=== PATIENT | female | born 1965 | race Caucasian/White ===

== ENCOUNTER 2016-07-04 15:41 | Emergency (ER) | payer OTHER ==
[2016-07-04 16:01] VITALS: BP 110/75; PULSE 83; TEMP 98.5; BMI 27.8
--- NOTE | 2016-07-04 16:30 | PDOC ---
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 States has had some issues approximately 1 month with functional uterine bleeding, was seen by her [employer] doctor and prescribed medication. But states the past few days has had urgency and burning with her void. Denies fever, nausea vomiting, no changes with bowel, no vaginal drainage. Timing/Duration: reports: constant, getting worse Quality: reports: mild Past History - Travel Traveled outside of the country in the last 30 days: No Close contact w/someone who was outside of country & ill: No - Past Medical History Allergies/Adverse Reactions: Allergies Allergy/AdvReac Type Severity Reaction Status Date / Time No Known Allergies Allergy Verified 07/04/16 16:01 Home Medications: Ambulatory Orders NK [No Known Home Medication] 07/04/16 Anemia: Yes Other medical history: DENIES - Surgical History Abdominal Surgery: Yes (tummy tuck) - Immunization History Td Vaccination: Yes Immunization Up to Date: Yes - Psycho/Social/Smoking Cessation Hx Anxiety: No Suicidal Ideation: No Smoking Status: No Smoking History: Never smoked Years of Tobacco Use: 0 Number of Cigarettes Smoked Daily: 0 Cigars Per Day: 0 Information on smoking cessation initiated: No Hx Alcohol Use: No Drug/Substance Use Hx: No Substance Use Type: None Review of Systems - Review of Systems Able to Perform ROS?: Yes Is the patient limited Polish proficient: Yes Constitutional: Yes: Symptoms Reported, See HPI, Malaise. No: Chills, Fever HEENTM: No: Symptoms Reported Respiratory: No: Symptoms reported : Yes: Symptoms Reported, See HPI, Dysuria, Frequency. No: Flank Pain Integumentary: No: Symptoms Reported All Other Systems: Reviewed and Negative *Physical Exam - Vital Signs Last Vital Signs Temp Pulse Resp BP Pulse Ox 98.5 F 83 18 110/75 98 07/04/16 15:57 07/04/16 15:57 07/04/16 15:57 07/04/16 15:57 07/04/16 15:57 - Physical Exam General Appearance: Yes: Nourished, Appropriately Dressed, Apparent Distress HEENT: positive: NUBIA, Normal ENT Inspection, Normal Voice, TMs Normal, Pharynx Normal Neck: positive: Tender, Supple. negative: Lymphadenopathy (R), Lymphadenopathy (L) Respiratory/Chest: positive: Lungs Clear, Normal Breath Sounds Cardiovascular: positive: Regular Rate Gastrointestinal/Abdominal: positive: Normal Bowel Sounds, Tender (mild suprapubic pain ), Soft. negative: Organomegaly, Distended, Guarding, Rebound, Tenderness Musculoskeletal: positive: Normal Inspection. 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 Instructed patient would send urine for culture to rule out infection but there is no indication for antibiotics at this time. Will refer to [employer] doctor for further evaluation and possible studies. *DC/Admit/Observation/Transfer Diagnosis at time of Disposition: Abdominal discomfort - Discharge Dispostion Disposition: HOME Condition at time of disposition: Stable Admit: No - Referrals Referrals: Arya Hanson MD [Staff Physician] - - Patient Instructions Printed Discharge Instructions: DI for Dysmenorrhea Additional Instructions: Rest, drink lots of fluids: Teas, water, soups Jaylene anna, carbonated beverages for the bubbles May try peppermint teas Avoid heavy , spicy or fatty foods until symptoms have resolved Avoid contact with others until fevers and symptoms resolved Lots of handwashing and good hygiene Continue [id number] medications for symptomatic relief Tylenol or Motrin for fever and pain Followup with private physician in one to 2 days as needed Return to emergency department for worsened symptoms, fevers, dehydration - Post Discharge Activity Work/School Note: Back to Work
[2016-07-04 16:58] LABS: URINE APPEARANCE CLOUDY; URINE BILIRUBIN NEGATIVE (NEGATIVE); URINE BLOOD NEGATIVE (NEGATIVE); URINE COLOR YELLOW; URINE GLUCOSE (UA) NEGATIVE (NEGATIVE); URINE KETONE NEGATIVE (NEGATIVE); URINE LEUK ESTERASE NEGATIVE (NEGATIVE); URINE NITRITE NEGATIVE (NEGATIVE); URINE PROTEIN NEGATIVE (NEGATIVE); URINE UROBILINOGEN NEGATIVE E.U./dl (0.2-1.0)
== END 2016-07-04 17:33 | disposition home or self-care (01) ==
LOC: JERFT 15:41
DX: R10.2 Pelvic and perineal pain (principal)
CPT/HCPCS: 81003; 87086; 99281-25

== ENCOUNTER 2016-10-14 23:31 | Emergency (ER) | payer OTHER ==
[2016-10-14 23:53] VITALS: BP 138/70; PULSE 82; TEMP 97.6; BMI 25.6
[2016-10-14] MEDS ORDERED: SODIUM CHLORIDE 1,000 ML IV STA (23:54)
[2016-10-15 00:24] LABS: BASOPHIL 0.6 % (0-2.0); EOSINOPHIL 0.6 % (0-4.5); MCH 27.1 pg (25.7-33.7); MCHC 32.6 g/dl (32.0-36.0); NEUTROPHILS 61.7 % (42.8-82.8); PLATELET COUNT 116 K/MM3 (134-434); RDW 14.8 % (11.6-15.6); WHITE BLOOD COUNT 5.2 K/mm3 (4.0-10.0)
--- NOTE | 2016-10-15 00:58 | PDOC ---
History of Present Illness - General Chief Complaint: Pain Stated Complaint: PAIN Time Seen by Provider: 10/14/16 23:39 History Source: Patient, Family, Tester Armature Or Fields Used Exam Limitations: Language Barrier - History of Present Illness Initial Comments: 10/15/16 00:51 50yo Female patient with no significant past medical history presents to ED c/o 2 day history of Headache, right hand numbness and right mancia numbness. Patient reports she wanted to come in to get checked out. LNMP: September 14. Denies n/v/d, fever, CP, Abd pain, diff breathing, rash, congestion, cough, or any other complaints at this time. Timing/Duration: other (2 days) Severity: mild Modifying Factors: worse with: cold therapy, eating, immobilization, medication , movement, rest, other Associated Symptoms: denies: denies symptoms, chest pain, cough, diaphoresis, fever/chills, headaches, loss of appetite, malaise, nausea/vomiting, rash, seizure, shortness of breath, syncope, weakness, other Aspirin Received prior to arrival: No: no aspirin today, unknown, 81 mg x 1, 81 mg x 2, 81 mg x 3, 81 mg x 4, 325 mg x 1, provided at home, provided by EMS, provided by ED Asa Contraindications(Core Measure): No: Allergy, Other, Active Blding w/i 24 hrs., Plavix, Receiving Warfarin Beta Jack Contraindications(Core Measure): No: Not Prescribed, Allergy, Bradycardia (HR <60bpm), Advanced Heart Block, Pacemaker, Other NIH Stroke Scale - Last Known Well Date/Time & Onset Date Last Known Well: 10/13/16 Time Last Known Well: 08:00 - Initial Evaluation Level of consciousness: Alert Ask patient the month and their age: Answers both correctly Ask patient to open & close eyes; make fist and let go: Obeys both correctly Best gaze (horizontal eye movement): Normal Visual field testing: No visual field loss Facial paresis (Show teeth/raise eyebrows/close eyes tight): Normal symmetrical movement Motor Function: Left Arm: Normal Motor Function: Right Arm: Normal (extends arm 90 (or 45) degrees for 10 seconds without drift Motor Function: Left Leg: Normal (extends leg 30 degrees for 5 seconds without drift) Motor Function: Right Leg: Normal (extends leg 30 degrees for 5 seconds without drift) Limb Ataxia: No ataxia Sensory(Use pinprick test arms,legs,trunk,face/side to side): Normal Best language (Describe picture, name items, read sentences): No Aphasia Dysarthria (read several words): Normal articulation Extinction and Inattention: No abnormality - Total Score NIH Stroke Scale Score: 0 Past History - Travel Traveled outside of the country in the last 30 days: No Close contact w/someone who was outside of country & ill: No - Past Medical History Allergies/Adverse Reactions: Allergies Allergy/AdvReac Type Severity Reaction Status Date / Time No Known Allergies Allergy Verified 10/14/16 23:50 Home Medications: Ambulatory Orders NK [No Known Home Medication] 07/04/16 Anemia: Yes - Surgical History Abdominal Surgery: Yes (tummy tuck) - Immunization History Td Vaccination: Yes Immunization Up to Date: Yes - Psycho/Social/Smoking Cessation Hx Anxiety: No Suicidal Ideation: No Smoking Status: No Smoking History: Former smoker Years of Tobacco Use: 0 Have you smoked in the past 12 months: No Number of Cigarettes Smoked Daily: 0 Cigars Per Day: 0 Information on smoking cessation initiated: No Hx Alcohol Use: No Drug/Substance Use Hx: No Substance Use Type: None Review of Systems - Review of Systems Able to Perform ROS?: Yes Is the patient limited Bulgarian proficient: No Constitutional: No: Chills, Fever, Weakness HEENTM: No: Eye Pain, Blurred Vision, Throat Swelling, Mouth Pain, Difficulty Swallowing, Mouth Swelling Respiratory: No: Cough, Shortness of Breath, Stridor, Wheezing Cardiac (ROS): No: Chest Pain, Lightheadedness, Palpitations, Syncope, Chest Tightness ABD/GI: No: Diarrhea, Nausea, Poor Appetite, Poor Fluid Intake, Vomiting, Abdominal cramping : No: Burning, Dysuria, Flank Pain, Hematuria, Pain Musculoskeletal: No: Back Pain, Muscle Weakness, Neck Pain Integumentary: No: Bruising, Dryness, Erythema, Lesions, Rash, Sweating Neurological: Yes: Headache, Numbness. No: Seizure, Tingling, Tremors, Weakness , Ataxia, Dizziness All Other Systems: Reviewed and Negative *Physical Exam - Vital Signs Last Vital Signs Temp Pulse Resp BP Pulse Ox 97.6 F 82 20 138/70 99 10/14/16 23:52 10/14/16 23:52 10/14/16 23:52 10/14/16 23:52 10/14/16 23:52 - Physical Exam General Appearance: Yes: Nourished, Appropriately Dressed. No: Apparent Distress, Mild Distress, Moderate Distress, Severe Distress HEENT: positive: EOMI, NUBIA, Normal ENT Inspection, Normal Voice, Symmetrical, TMs Normal, Pharynx Normal. negative: Tonsillar Exudate, Tonsillar Erythema, Nasal Congestion, Rhinorrhea, TM Bulging, TM Dull, TM Erythema Neck: positive: Trachea midline, Normal Thyroid, Supple. negative: Lymphadenopathy (R), Lymphadenopathy (L), Rigidity, Tender lateral, Tender midline Respiratory/Chest: positive: Lungs Clear, Normal Breath Sounds. negative: Chest Tender, Respiratory Distress, Accessory Muscle Use, Labored Respiration, Rapid RR, Paradoxal Breathing, Crackles, Rales, Rhonchi, Stridor, Wheezing Cardiovascular: positive: Regular Rhythm, Regular Rate. negative: Edema, JVD, Tachycardia Gastrointestinal/Abdominal: positive: Normal Bowel Sounds, Soft. negative: Tender, Flat, Distended, Guarding, Rebound, Tenderness Musculoskeletal: positive: Normal Inspection. negative: CVA Tenderness, Decreased Range of Motion, Vertebral Tenderness Extremity: positive: Normal Capillary Refill, Normal Inspection, Normal Range of Motion. negative: Pedal Edema, Swelling, Calf Tenderness, Erythema, Inflammation Integumentary: positive: Normal Color, Dry, Warm. 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 NML intact, Fully Oriented, Alert, Normal Mood/ Affect, Normal Response, Motor Strength 5/5 ED Treatment Course - LABORATORY CBC & Chemistry Diagram: 10/15/16 00:10 10/15/16 00:10 - ADDITIONAL ORDERS Additional order review: 10/15/16 00:10 RBC 4.03 MCV 83.0 MCHC 32.6 RDW 14.8 MPV 11.0 Neutrophils % 61.7 Lymphocytes % 29.6 Monocytes % 7.5 Eosinophils % 0.6 Basophils % 0.6 - RADIOLOGY Radiology Studies Ordered: Category Date Time Status HEAD CT WITHOUT CONTRAST [CT] Stat CT Scan 10/15/16 00:00 Ordered *DC/Admit/Observation/Transfer Diagnosis at time of Disposition: Headache Qualifiers: Headache type: unspecified Headache chronicity pattern: acute headache Intractability: not intractable Qualified Code(s): R51 - Headache - Discharge Dispostion Disposition: HOME Condition at time of disposition: Improved Admit: No - Patient Instructions Printed Discharge Instructions: DI for Migraine Additional Instructions: FOLLOW UP WITH YOUR PRIMARY CARE PROVIDER THIS WEEK. CALL TO SCHEDULE APPOINTMENT. RETURN IF SYMPTOMS WORSEN OR ANY CONCERNS FOR FURTHER EVALUATION. Print Language: VATICAN CITIZEN
[2016-10-15 01:05] LABS: ALBUMIN 3.8 g/dl (3.4-5.0); ALK PHOS 81 U/L (45-117); ANION GAP 7 (8-16); BILIRUBIN,TOTAL 0.6 mg/dL (0.2-1.0); CALCIUM 8.7 mg/dL (8.5-10.1); CO2 25 mmol/L (21-32); CREATININE 0.6 mg/dL (0.55-1.02); GLUCOSE,RANDOM 93 mg/dL (74-106); SGOT/AST 14 U/L (15-37); SGPT/ALT 23 U/L (12-78); TOT PROT 7.5 g/dl (6.4-8.2)
[2016-10-15 01:49] LABS: URINE APPEARANCE CLEAR; URINE BILIRUBIN NEGATIVE (NEGATIVE); URINE BLOOD NEGATIVE (NEGATIVE); URINE COLOR STRAW; URINE GLUCOSE (UA) NEGATIVE (NEGATIVE); URINE KETONE NEGATIVE (NEGATIVE); URINE LEUK ESTERASE TRACE (NEGATIVE); URINE NITRITE NEGATIVE (NEGATIVE); URINE PROTEIN NEGATIVE (NEGATIVE); URINE UROBILINOGEN NEGATIVE mg/dL (0.2-1.0)
[2016-10-15 01:58] LABS: URINE RBC <1 /hpf (0-3); URINE WBC 5 /hpf (3-5)
--- NOTE | 2016-10-15 09:12 | EKG ---
Test Reason : Blood Pressure : / mmHG Vent. Rate : 083 BPM Atrial Rate : 083 BPM P-R Int : 194 ms QRS Dur : 078 ms QT Int : 370 ms P-R-T Axes : 050 037 050 degrees QTc Int : 434 ms NORMAL SINUS RHYTHM POSSIBLE LEFT ATRIAL ENLARGEMENT BORDERLINE ECG WHEN COMPARED WITH ECG OF 30-DEC-2014 02:21, NO SIGNIFICANT CHANGE WAS FOUND Confirmed by ADRIENNE LY MD ([id number]) on 10/15/2016 9:11:42 AM Referred By: Confirmed By:ADRIENNE LY MD
== END 2016-10-15 03:00 | disposition home or self-care (01) ==
LOC: JER 23:31
PROC: 3E0337Z Introduction of Electrolytic and Water Balance Substance into Peripheral Vein, Percutaneous Approach (ICD-10-PCS; principal; 2016-10-14)
DX: R51 Headache (principal)
CPT/HCPCS: 36415; 70450-TC; 80053; 81003; 81015; 84703; 85025; 93005; 93010; 96360; 99282-25

== ENCOUNTER 2017-05-12 07:22 | Emergency (ER) | payer OTHER ==
[2017-05-12 07:50] VITALS: TEMP 98.2; BMI 26.0
[2017-05-12] MEDS ORDERED: SODIUM CHLORIDE 1,000 ML IV STA (08:23)
[2017-05-12] MEDS ORDERED: ONDANSETRON *ODT* 4 MG TABLET SL ONE (08:28)
--- NOTE | 2017-05-12 08:28 | PDOC ---
History of Present Illness - General Chief Complaint: Pain, Acute Stated Complaint: VOMITING Time Seen by Provider: 05/12/17 08:09 History Source: Patient, Spouse - History of Present Illness Initial Comments: 05/12/17 08:25 51F with pmh of anemia presents with nausea, vomiting and diffuse abdominal pain for the past 10 hours. Last food eaten was plantains around 3pm. Patient doesn't take any medication. Denies diarrhea or blood in vomitus. No one else sick at home, no recent travel. Past History - Past Medical History Allergies/Adverse Reactions: Allergies Allergy/AdvReac Type Severity Reaction Status Date / Time No Known Allergies Allergy Verified 05/12/17 07:40 Home Medications: Ambulatory Orders Nabumetone 750 mg PO DAILY 05/12/17 Ondansetron [Zofran *Odt*] 8 mg SL BID #20 od.tablet 05/12/17 Zolpidem Tartrate [Ambien] 10 mg PO DAILY 05/12/17 Anemia: Yes COPD: No - Surgical History Abdominal Surgery: Yes (sky fuentes) - Immunization History Td Vaccination: Yes Immunization Up to Date: Yes - Suicide/Smoking/Psychosocial Hx Smoking Status: No Smoking History: Former smoker Years of Tobacco Use: 0 Have you smoked in the past 12 months: No Number of Cigarettes Smoked Daily: 0 Cigars Per Day: 0 Information on smoking cessation initiated: No Hx Alcohol Use: No Drug/Substance Use Hx: No Substance Use Type: None Review of Systems - Review of Systems Able to Perform ROS?: Yes Is the patient limited Jordanian proficient: Yes Constitutional: Yes: Loss of Appetite, Weakness. No: Diaphoresis, Fever HEENTM: No: Symptoms Reported Respiratory: No: Symptoms reported Cardiac (ROS): No: Symptoms Reported ABD/GI: Yes: Nausea, Poor Appetite, Poor Fluid Intake, Vomiting. No: Abdominal Distended, Constipated, Diarrhea, Rectal Bleeding, Indigestion : No: Symptoms Reported Musculoskeletal: No: Symptoms Reported Integumentary: No: Symptoms Reported All Other Systems: Reviewed and Negative *Physical Exam - Vital Signs Last Vital Signs Temp Pulse Resp BP Pulse Ox 98.2 F 95 H 19 118/72 99 05/12/17 07:40 05/12/17 07:40 05/12/17 07:40 05/12/17 07:40 05/12/17 07:40 - Physical Exam General Appearance: Yes: Nourished, Appropriately Dressed. No: Apparent Distress HEENT: positive: EOMI, NUBIA, Normal ENT Inspection ED Treatment Course - LABORATORY CBC & Chemistry Diagram: 05/12/17 08:54 05/12/17 08:54 Medical Decision Making - Medical Decision Making 05/12/17 11:22 US: No evidence of cholelithiasis. There is no sonographic evidence of acute pathology. No definite biliary tract dilatation is seen. Several hepatic cysts are noted the most prominent measuring 3 cm in diameter. This latter cyst demonstrates a mildly thickened internal septation. Correlation with 3 month follow-up sonography is suggested to document stability, and lack of developing pathology. 05/12/17 12:36 Labs wnl, 05/12/17 12:[address] findings of acute pathology are identified. Numerous hepatic cysts are noted. Mildly thickened internal septations noted on recently performed sonography are difficult to appreciate on CT. Correlation with 3-4 month follow up sonography is suggested. Patient feeling better after ns and zofran. preg neg, Will po challenge, zofran prescription and dc with referal *DC/Admit/Observation/Transfer Diagnosis at time of Disposition: Vomiting - Discharge Dispostion Disposition: HOME Condition at time of disposition: Improved Admit: No - Prescriptions Prescriptions: Ondansetron [Zofran *Odt*] 8 mg SL BID #20 od.tablet - Referrals Referrals: Tray Banks MD [Staff Physician] - - Patient Instructions Printed Discharge Instructions: DI for Viral Gastroenteritis -- Adult Additional Instructions: Follow up with Dr. Banks, [employer] for Ct Scan Results within 2-3 days Come back to the ER for any new, worsening or persistent symptoms. Print Language: ITALIAN - Post Discharge Activity
[2017-05-12] MEDS ORDERED: morphine CARPU-JECT 4 MG/1 ML DISP.SYRIN IVPUSH ONE (08:30)
[2017-05-12] MEDS ORDERED: ACETAMINOPHEN 1000 MG/100 ML VIAL (NON FORMULARY) IVPB ONE (08:32)
[2017-05-12 09:17] LABS: BASO % 0.1 % (0-2.0); EOS % 0.1 % (0-4.5); HEMATOCRIT 38.1 % (32.4-45.2); HEMOGLOBIN 12.6 GM/dL (10.7-15.3); LYMPH % 4.7 % (8-40); MCH 28.3 pg (25.7-33.7); MEAN CELL VOLUME 85.7 fl (80-96); MEAN PLT VOLUME 11.5 fl (7.5-11.1); MONO % 2.2 % (3.8-10.2); NEUT % 92.9 % (42.8-82.8); PLATELET COUNT 139 K/MM3 (134-434); RBC 4.44 M/mm3 (3.60-5.2); RDW 15.2 % (11.6-15.6); WHITE BLOOD COUNT 10.8 K/mm3 (4.0-10.0)
[2017-05-12] MEDS ORDERED: ACETAMINOPHEN INJECTION 100 ML IVPB ONE (09:23)
[2017-05-12] MEDS ORDERED: FAMOTIDINE 20 MG/50 ML IVPB 20 MG/50 ML MG IVPB ONE (09:23)
[2017-05-12] MEDS ORDERED: MORPHINE SULFATE 10 MG/1 ML *VIAL ONE (09:23)
[2017-05-12] MEDS ORDERED: ONDANSETRON *ODT* 4 MG TABLET ONE (09:23)
[2017-05-12] MEDS ORDERED: METOCLOPRAMIDE HCL INJECTION 10 MG/2 ML VIAL ONE (09:30)
[2017-05-12] MEDS ORDERED: METOCLOPRAMIDE HCL INJECTION 10 MG/2 ML VIAL IVPUSH ONE (09:30)
--- NOTE | 2017-05-12 09:48 | PDOC ---
Attending Attestation - Resident Resident Name: Wilber Diallo - ED Attending Attestation I have performed the following: I have examined & evaluated the patient, The case was reviewed & discussed with the resident, I agree w/resident's findings & plan, Exceptions are as noted - HPI HPI: 05/12/17 09:47 51 year old F c/ pmh abdominoplasty p/w nausea and vomiting since yesterday. Ate some food yesterday and since then has been vomiting several times. Denies fevers, diarrhea. States has diffuse upper abdominal pain. Denies dysuria. Pt unable to tolerate PO 2/2 nausea. - Physicial Exam PE: 05/12/17 10:15 GENERAL: Awake, alert, and fully oriented. Uncomfortable appearing. HEAD: No signs of trauma EYES: PERRLA, EOMI, sclera anicteric, conjunctiva clear ENT: Auricles normal inspection, hearing grossly normal, nares patent, NECK: Normal ROM, supple ABDOMEN: TTP RUQ, epigastric, LUQ. Soft. No guarding, no rebound. No masses EXTREMITIES: Normal range of motion, no edema. No clubbing or cyanosis. No cords, erythema, or tenderness NEUROLOGICAL: Cranial nerves II through XII grossly intact. Normal speech SKIN: Warm, Dry, normal turgor, no rashes or lesions noted. - Medical Decision Making 05/12/17 10:17 Vital Signs Temp Pulse Resp BP Pulse Ox 98.2 F 95 H 19 118/72 99 05/12/17 07:40 05/12/17 07:40 05/12/17 07:40 05/12/17 07:40 05/12/17 07:40 51 year old female with past medical history of vomiting and abdominal pain. May possibly be food poisoning, but differential includes gastritis, gastroenteritis, acute cholecystitis, pancreatitis, bowel obstruction. Lab, chest xray, ultrasound, CT abdomen and pelvis. 05/12/17 12:25 CBC, BMP 05/12/17 08:54 05/12/17 08:54 CMP Sodium 140 mmol/L (136-145) 05/12/17 08:54 Potassium 4.8 mmol/L (3.5-5.1) 05/12/17 08:54 Chloride 107 mmol/L (98-107) 05/12/17 08:54 Carbon Dioxide 26 mmol/L (21-32) 05/12/17 08:54 Anion Gap 7 (8-16) L 05/12/17 08:54 BUN 17 mg/dL (7-18) 05/12/17 08:54 Creatinine 0.7 mg/dL (0.55-1.02) 05/12/17 08:54 Creat Clearance w eGFR > 60 (>60) 05/12/17 08:54 Random Glucose 102 mg/dL (74-106) 05/12/17 08:54 Lactic Acid 1.7 mmol/L (0.0-2.0) 05/12/17 09:42 Calcium 8.3 mg/dL (8.5-10.1) L 05/12/17 08:54 Total Bilirubin 0.8 mg/dL (0.2-1.0) D 05/12/17 08:54 AST 41 U/L (15-37) H 05/12/17 08:54 ALT 36 U/L (12-78) 05/12/17 08:54 Alkaline Phosphatase 100 U/L (45-117) 05/12/17 08:54 Creatine Kinase 127 IU/L (26-192) 05/12/17 08:54 Troponin I < 0.02 ng/ml (0.00-0.05) 05/12/17 08:54 Total Protein 8.1 g/dl (6.4-8.2) 05/12/17 08:54 Albumin 4.1 g/dl (3.4-5.0) 05/12/17 08:54 Beta HCG, Quant < 1.0 mIU/ml 05/12/17 08:54 Urine Test Results Urine Color Ltyellow 05/12/17 10:38 Urine Appearance Clear 05/12/17 10:38 Urine pH 9.0 (5.0-8.0) H D 05/12/17 10:38 Ur Specific [place] 1.020 (1.001-1.035) 05/12/17 10:38 Urine Protein Negative (NEGATIVE) 05/12/17 10:38 Urine Glucose (UA) Negative (NEGATIVE) 05/12/17 10:38 Urine Ketones Trace (NEGATIVE) H 05/12/17 10:38 Urine Blood Negative (NEGATIVE) 05/12/17 10:38 Urine Nitrite Negative (NEGATIVE) 05/12/17 10:38 Urine Bilirubin Negative (NEGATIVE) 05/12/17 10:38 Ur Leukocyte Esterase Negative (NEGATIVE) 05/12/17 10:38 CT abdomen and pelvis and ultrasound demonstrates hepatic cysts. I had given the results to the patient including a copy of the workup. I instructed the patient that she will need a follow up with her doctor for a repeat ultrasound for her liver cysts. The patient does feel better but is requesting some more medications for nausea and fluids. Once the patient feels better, the patient can be discharged. Heart Score/ECG Review #1 ECG reviewed & interpreted by me at: 10:35 05/12/17 10:37 NSR 76, T wave flat III, no std/néstor, RSR' V2, QTC 434 msec
[2017-05-12 09:52] LABS: ALBUMIN 4.1 g/dl (3.4-5.0); ANION GAP 7 (8-16); BILIRUBIN,TOTAL 0.8 mg/dL (0.2-1.0); BLOOD UREA NITROGEN 17 mg/dL (7-18); CALCIUM 8.3 mg/dL (8.5-10.1); CHLORIDE 107 mmol/L (98-107); CO2 26 mmol/L (21-32); CREATININE 0.7 mg/dL (0.55-1.02); GLUCOSE,RANDOM 102 mg/dL (74-106); SGPT/ALT 36 U/L (12-78); SODIUM 140 mmol/L (136-145); TOT PROT 8.1 g/dl (6.4-8.2)
[2017-05-12 09:54] LABS: ALK PHOS 100 U/L (45-117)
[2017-05-12 09:57] LABS: POTASSIUM 4.8 mmol/L (3.5-5.1); SGOT/AST 41 U/L (15-37)
[2017-05-12] MEDS ORDERED: FAMOTIDINE IV 20 MG/12 ML VIAL IVPUSH SCH (10:00)
[2017-05-12 11:05] LABS: URINE APPEARANCE CLEAR; URINE BILIRUBIN NEGATIVE (NEGATIVE); URINE BLOOD NEGATIVE (NEGATIVE); URINE COLOR LTYELLOW; URINE GLUCOSE (UA) NEGATIVE (NEGATIVE); URINE KETONE TRACE (NEGATIVE); URINE LEUK ESTERASE NEGATIVE (NEGATIVE); URINE NITRITE NEGATIVE (NEGATIVE); URINE PROTEIN NEGATIVE (NEGATIVE); URINE UROBILINOGEN NEGATIVE mg/dL (0.2-1.0)
[2017-05-12 11:06] LABS: HCG,QUALITATIVE URINE NEGATIVE
[2017-05-12] MEDS ORDERED: ONDANSETRON 4 MG/2 ML VIAL IVPB ONE (12:29)
[2017-05-12 13:15] VITALS: BP 117/66; PULSE 78
--- NOTE | 2017-05-13 23:28 | EKG ---
Test Reason : Blood Pressure : / mmHG Vent. Rate : 076 BPM Atrial Rate : 076 BPM P-R Int : 188 ms QRS Dur : 078 ms QT Int : 386 ms P-R-T Axes : 063 055 046 degrees QTc Int : 434 ms NORMAL SINUS RHYTHM RSR' OR QR PATTERN IN V1 SUGGESTS RIGHT VENTRICULAR CONDUCTION DELAY WHEN COMPARED WITH ECG OF 15-OCT-2016 00:17, T WAVE VARIATION Confirmed by RAAD CANSECO MD ([id number]) on 05/13/2017 11:27:56 PM Referred By: Confirmed By:RAAD CANSECO MD
== END 2017-05-12 13:14 | disposition home or self-care (01) ==
LOC: JER 07:22
PROC: 3E033NZ Introduction of Analgesics, Hypnotics, Sedatives into Peripheral Vein, Percutaneous Approach (ICD-10-PCS; principal; 2017-05-12)
PROC: 3E033GC Introduction of Other Therapeutic Substance into Peripheral Vein, Percutaneous Approach (ICD-10-PCS; 2017-05-12)
PROC: 3E033GC Introduction of Other Therapeutic Substance into Peripheral Vein, Percutaneous Approach (ICD-10-PCS; 2017-05-12)
PROC: 3E033GC Introduction of Other Therapeutic Substance into Peripheral Vein, Percutaneous Approach (ICD-10-PCS; 2017-05-12)
DX: A08.4 Viral intestinal infection, unspecified (principal); B97.89 Other viral agents as the cause of diseases classified elsewhere
CPT/HCPCS: 36415; 74177-TC; 76705-TC; 80053; 81003; 82550; 83605; 84484; 84702; 84703; 85025; 93005; 93010; 96374; 96375; 99284-25

== ENCOUNTER 2017-06-19 07:33 | Emergency (ER) | payer OTHER ==
[2017-06-19 07:40] VITALS: TEMP 97.7; BMI 25.1
--- NOTE | 2017-06-19 07:54 | PDOC ---
History of Present Illness - General History Source: Patient Exam Limitations: No Limitations - History of Present Illness Initial Comments: 06/19/17 08:59 The patient is a 51 year old female with a significant PMH of anemia who presents to the emergency department with 3 days of dizziness and nausea and 1 day of diarrhea. The patient describes her dizziness as if the room is spinning around her with associated nausea, which is intermittent throughout the day and lasts for a few hours each time. She notes her dizziness is worse when she moves her head side to side. The patient describes her diarrhea as liquid stool with no associated hematochezia. The patient endorses some chills but denies fever. The patient denies vomiting. She denies any sick contacts or recent travel. She denies any history of vertigo. The patient denies chest pain, shortness of breath, and headache. Denies dysuria, frequency, urgency, and hematuria. LMP: 06/05/2017 Allergies: Morphine Past surgical history: Tummy tuck. Social history: No reported cigarette, alcohol, or drug use. PCP: Dr. Sergio Bryson <Ángel Isaac - Last Filed: 06/19/17 10:54> <Sukumar Sandoval - Last Filed: 06/19/17 11:34> - General Chief Complaint: Vomiting/Diarrhea Stated Complaint: VOMITING Time Seen by Provider: 06/19/17 07:54 Past History <Ángel Isaac - Last Filed: 06/19/17 10:54> - Past Medical History Anemia: Yes COPD: No - Surgical History Abdominal Surgery: Yes (tummy tuck) - Immunization History Td Vaccination: Yes Immunization Up to Date: Yes - Suicide/Smoking/Psychosocial Hx Smoking Status: No Smoking History: Never smoked Years of Tobacco Use: 0 Have you smoked in the past 12 months: No Number of Cigarettes Smoked Daily: 0 Cigars Per Day: 0 Information on smoking cessation initiated: No Hx Alcohol Use: No Drug/Substance Use Hx: No Substance Use Type: None <Sukumar Sandoval - Last Filed: 06/19/17 11:34> - Past Medical History Allergies/Adverse Reactions: Allergies Allergy/AdvReac Type Severity Reaction Status Date / Time morphine Allergy Intermediate Verified 06/19/17 07:41 Home Medications: Ambulatory Orders Nabumetone 750 mg PO DAILY 05/12/17 Ondansetron [Zofran *Odt*] 8 mg SL BID #20 od.tablet 05/12/17 Zolpidem Tartrate [Ambien] 10 mg PO DAILY 05/12/17 Review of Systems - Review of Systems Able to Perform ROS?: Yes Comments:: 06/19/17 09:02 GENERAL/CONSTITUTIONAL: (+) Chills. No fever. No weakness. HEAD, EYES, EARS, NOSE AND THROAT: No change in vision. No ear pain or discharge. No sore throat. CARDIOVASCULAR: No chest pain or shortness of breath. RESPIRATORY: No cough, wheezing, or hemoptysis. GASTROINTESTINAL: (+) Nausea. (+) Diarrhea. No vomiting or constipation. GENITOURINARY: No dysuria, frequency, or change in urination. MUSCULOSKELETAL: No joint or muscle swelling or pain. No neck or back pain. SKIN: No rash NEUROLOGIC: (+) Dizziness. No headache or loss of consciousness, or change in strength. ENDOCRINE: No increased thirst. No abnormal weight change. HEMATOLOGIC/LYMPHATIC: No anemia, easy bleeding, or history of blood clots. ALLERGIC/IMMUNOLOGIC: No hives or skin allergy. <Ángel Isaac - Last Filed: 06/19/17 10:54> *Physical Exam - Vital Signs Last Vital Signs Temp Pulse Resp BP Pulse Ox 97.7 F 74 18 124/54 99 06/19/17 07:35 06/19/17 07:35 06/19/17 07:35 06/19/17 07:35 06/19/17 07:35 - Physical Exam Comments: 06/19/17 10:54 GENERAL: Awake, alert, and fully oriented, in no acute distress HEAD: No signs of trauma EYES: PERRLA, EOMI, sclera anicteric, conjunctiva clear ENT: Auricles normal inspection, hearing grossly normal, nares patent, oropharynx clear without exudates. Moist mucosa NECK: Normal ROM, supple, no lymphadenopathy, JVD, or masses LUNGS: Breath sounds equal, clear to auscultation bilaterally. No wheezes, and no crackles HEART: Regular rate and rhythm, normal S1 and S2, no murmurs, rubs or gallops ABDOMEN: (+) Mild epigastric discomfort. Soft, nontender normoactive bowel sounds. No guarding, no rebound. No masses EXTREMITIES: Normal range of motion, no edema. No clubbing or cyanosis. No cords, erythema, or tenderness NEUROLOGICAL: Cranial nerves II through XII grossly intact. Normal speech, normal gait SKIN: Warm, Dry, normal turgor, no rashes or lesions noted. <Ángel Isaac - Last Filed: 06/19/17 10:54> - Vital Signs Last Vital Signs Temp Pulse Resp BP Pulse Ox 97.7 F 74 18 124/54 99 06/19/17 07:35 06/19/17 07:35 06/19/17 07:35 06/19/17 07:35 06/19/17 07:35 <Sukumar Sandoval - Last Filed: 06/19/17 11:34> ED Treatment Course - LABORATORY CBC & Chemistry Diagram: 06/19/17 08:15 06/19/17 08:15 <Ángel Isaac - Last Filed: 06/19/17 10:54> - LABORATORY CBC & Chemistry Diagram: 06/19/17 08:15 06/19/17 10:06 <Sukumar Sandoval - Last Filed: 06/19/17 11:34> Medical Decision Making - Medical Decision Making 06/19/17 11:12 Patient is well-appearing 51-year-old female who presents to the ER with several bouts of loose watery stools and signs and symptoms of peripheral vertigo. Serial abdominal exams reveal minimal epigastric discomfort only without guarding or rebound. Will administer IV fluids, H2 blockers and Zofran as well as meclizine. Will reassess. Likely discharge. 06/19/17 11:32 Patient reassessed. Patient is resting comfortably, symptom free, tolerates by mouth. CBC/CMP/UA within normal limit. I suspect gastroenteritis with concomitant vertigo. I do not suspect central cause of the vertigo. BPV is likely. Will discharge with meclizine. <Sukumar Sandoval - Last Filed: 06/19/17 11:34> *DC/Admit/Observation/Transfer - Attestations Scribe Attestion: 06/19/17 09:02 Documentation prepared by Ángel Isaac, acting as medical billing service for Sukumar Sandoval MD. <Ángel Isaac - Last Filed: 06/19/17 10:54> - Attestations Physician Attestion: 06/19/17 11:11 The documentation was prepared by the scribe under my direct supervision. I have reviewed the documentation which correctly represents the findings, medical decision-making and critical action taken by me. <Sukumar Sandoval - Last Filed: 06/19/17 11:34> Diagnosis at time of Disposition: Vertigo Abdominal pain Qualifiers: Abdominal location: epigastric Qualified Code(s): R10.13 - Epigastric pain Diarrhea Qualifiers: Diarrhea type: unspecified type Qualified Code(s): R19.7 - Diarrhea, unspecified - Discharge Dispostion Disposition: HOME Condition at time of disposition: Stable - Referrals Referrals: ON STAFF,NOT [Primary Care Provider] - pmd, one week [Other] - Patient Instructions Printed Discharge Instructions: DI for Abdominal Pain-Adult, DI for Diarrhea and Traveler's Diarrhea -- Adult, DI for Vertigo Print Language: MALTESE
[2017-06-19] MEDS ORDERED: MECLIZINE HCL 25 MG TABLET (FP) PO ONE (08:32)
[2017-06-19] MEDS ORDERED: SODIUM CHLORIDE 1,000 ML IV STA (08:32)
[2017-06-19] MEDS ORDERED: ONDANSETRON 4 MG/2 ML VIAL IVPUSH ONE (08:32)
[2017-06-19] MEDS ORDERED: MECLIZINE HCL 25 MG TABLET (FP) ONE (08:51)
[2017-06-19] MEDS ORDERED: ONDANSETRON 4 MG/2 ML VIAL ONE (08:51)
[2017-06-19 09:03] LABS: BASO % 0.7 % (0-2.0); EOS % 0.6 % (0-4.5); HEMATOCRIT 33.8 % (32.4-45.2); HEMOGLOBIN 11.4 GM/dL (10.7-15.3); LYMPH % 20.3 % (8-40); MCH 28.9 pg (25.7-33.7); MCHC 33.8 g/dl (32.0-36.0); MEAN CELL VOLUME 85.6 fl (80-96); MEAN PLT VOLUME 11.5 fl (7.5-11.1); MONO % 6.3 % (3.8-10.2); NEUT % 72.1 % (42.8-82.8); PLATELET COUNT 162 K/MM3 (134-434); RBC 3.94 M/mm3 (3.60-5.2); RDW 14.1 % (11.6-15.6); WHITE BLOOD COUNT 6.6 K/mm3 (4.0-10.0)
[2017-06-19 10:50] LABS: ALBUMIN 3.5 g/dl (3.4-5.0); ALK PHOS 99 U/L (45-117); ANION GAP 5 (8-16); BILIRUBIN,TOTAL 0.3 mg/dL (0.2-1.0); BLOOD UREA NITROGEN 13 mg/dL (7-18); CALCIUM 8.5 mg/dL (8.5-10.1); CHLORIDE 109 mmol/L (98-107); CO2 27 mmol/L (21-32); CREATININE 0.7 mg/dL (0.55-1.02); GLUCOSE,RANDOM 94 mg/dL (74-106); POTASSIUM 4.8 mmol/L (3.5-5.1); SGOT/AST 23 U/L (15-37); SGPT/ALT 52 U/L (12-78); SODIUM 141 mmol/L (136-145); TOT PROT 6.9 g/dl (6.4-8.2)
[2017-06-19 11:09] LABS: URINE APPEARANCE CLEAR; URINE BILIRUBIN NEGATIVE (<2.0 mg/dL); URINE BLOOD NEGATIVE (NEGATIVE); URINE COLOR COLORLESS; URINE GLUCOSE (UA) NEGATIVE (NEGATIVE); URINE KETONE NEGATIVE (NEGATIVE); URINE LEUK ESTERASE NEGATIVE (NEGATIVE); URINE NITRITE NEGATIVE (NEGATIVE); URINE PROTEIN NEGATIVE (NEGATIVE); URINE UROBILINOGEN NEGATIVE mg/dL (0.2-1.0)
[2017-06-19 12:15] VITALS: BP 118/60; PULSE 70
== END 2017-06-19 12:15 | disposition home or self-care (01) ==
LOC: JER 07:33
PROC: 3E033GC Introduction of Other Therapeutic Substance into Peripheral Vein, Percutaneous Approach (ICD-10-PCS; principal; 2017-06-19)
PROC: 3E0337Z Introduction of Electrolytic and Water Balance Substance into Peripheral Vein, Percutaneous Approach (ICD-10-PCS; 2017-06-19)
DX: R10.13 Epigastric pain (principal); R42 Dizziness and giddiness; R19.7 Diarrhea, unspecified
CPT/HCPCS: 36415; 80053; 81003; 84703; 85025; 96367; 96374; 99283-25; J7030

== ENCOUNTER 2017-08-14 14:52 | Emergency (ER) | payer OTHER ==
[2017-08-14 14:59] VITALS: BP 151/84; PULSE 71; TEMP 98.8; BMI 27.4
--- NOTE | 2017-08-14 15:03 | PDOC ---
Rapid Medical Evaluation Chief Complaint: Nausea/Vomiting Medical Evaluation: Allergies Allergy/AdvReac Type Severity Reaction Status Date / Time morphine Allergy Intermediate Verified 08/14/17 14:59 Vital Signs Temp Pulse Resp BP Pulse Ox 98.8 F 71 20 151/84 99 08/14/17 14:56 08/14/17 14:56 08/14/17 14:56 08/14/17 14:56 08/14/17 14:56 08/14/17 15:01 I have performed a brief in-person evaluation of this patient. The patient presents with a chief complaint of:RUQ pain and n/v x 2 days, no f/c , similar to sxs in past. H/o anemia, hepatic cysts on US 05/12 after p/w similar sxs. S/p endoscopy 06/09 with negative results per pt. Sent in by Dr Banks for abd US. Pertinent physical exam findings:ttp to RUQ I have ordered the following:labs/US The patient will proceed to the ED for further evaluation. Discharge Disposition - Diagnosis Abdominal discomfort - Referrals - Patient Instructions - Post Discharge Activity
[2017-08-14 15:58] LABS: BASO % 0.5 % (0-2.0); EOS % 0.9 % (0-4.5); HEMATOCRIT 36.9 % (32.4-45.2); HEMOGLOBIN 11.9 GM/dL (10.7-15.3); MCHC 32.3 g/dl (32.0-36.0); MEAN CELL VOLUME 83.5 fl (80-96); MEAN PLT VOLUME 11.4 fl (7.5-11.1); MONO % 6.5 % (3.8-10.2); NEUT % 61.1 % (42.8-82.8); PLATELET COUNT 161 K/MM3 (134-434); RBC 4.42 M/mm3 (3.60-5.2); RDW 13.9 % (11.6-15.6); WHITE BLOOD COUNT 4.5 K/mm3 (4.0-10.0)
[2017-08-14 16:03] LABS: URINE APPEARANCE CLEAR; URINE BILIRUBIN NEGATIVE (<2.0 mg/dL); URINE COLOR LTYELLOW; URINE GLUCOSE (UA) NEGATIVE (NEGATIVE); URINE KETONE NEGATIVE (NEGATIVE); URINE LEUK ESTERASE NEGATIVE (NEGATIVE); URINE NITRITE NEGATIVE (NEGATIVE); URINE PROTEIN NEGATIVE (NEGATIVE); URINE UROBILINOGEN NEGATIVE mg/dL (0.2-1.0)
[2017-08-14 16:22] LABS: EPI CELLS RARE /HPF (FEW); URINE MUCUS RARE
[2017-08-14 16:48] LABS: ALBUMIN 3.7 g/dl (3.4-5.0); ANION GAP 7 (8-16); BILIRUBIN,TOTAL 0.3 mg/dL (0.2-1.0); BLOOD UREA NITROGEN 8 mg/dL (7-18); CALCIUM 8.9 mg/dL (8.5-10.1); CHLORIDE 107 mmol/L (98-107); CO2 26 mmol/L (21-32); CREATININE 0.7 mg/dL (0.55-1.02); GLUCOSE,RANDOM 109 mg/dL (74-106); LIPASE 177 U/L (73-393); POTASSIUM 4.3 mmol/L (3.5-5.1); SGOT/AST 22 U/L (15-37); SGPT/ALT 40 U/L (12-78); SODIUM 140 mmol/L (136-145); TOT PROT 7.7 g/dl (6.4-8.2)
[2017-08-14 16:49] LABS: ALK PHOS 95 U/L (45-117)
--- NOTE | 2017-08-14 17:33 | PDOC ---
History of Present Illness - General Chief Complaint: Nausea/Vomiting Stated Complaint: PAIN/ ABD, SIDE Time Seen by Provider: 08/14/17 17:20 - History of Present Illness Initial Comments: 08/14/17 17:29 51 yo F with h/o anemia, hepatic cysts who p/w RUQ abdominal pain and N/V. Patient reports 2 days of worsening symptoms. 3 weeks of sharp, crampy, RUQ abdominal pain worse with PO intake. Also associated with intermittent bilous, non bloody emesis Q3-4 days worse with PO intake. Intermittent loose watery stools. Denies BPR. Denies F/C, N/V, CP, SOB, abdominal pain, diarrhea, constipation, urinary complaints, weakness, lightheadedness, sensory changes. PMHx: as noted above. Currently on triple therapy suspected H.pylori. Recent + endosocpy ROS: as noted above SHx: Denies Etoh, tobacco, IVDA. Allergies: Morphine Past History - Past Medical History Allergies/Adverse Reactions: Allergies Allergy/AdvReac Type Severity Reaction Status Date / Time morphine Allergy Intermediate Verified 08/14/17 14:59 Home Medications: Ambulatory Orders Nabumetone 750 mg PO DAILY 05/12/17 Ondansetron [Zofran *Odt*] 8 mg SL BID #20 od.tablet 05/12/17 Zolpidem Tartrate [Ambien] 10 mg PO DAILY 05/12/17 Ondansetron HCl [Zofran] 4 mg PO PRN PRN 30 Days #60 tablet MDD 2 tab 08/14/17 Ranitidine HCl [Zantac] 150 mg PO DAILY 30 Days #30 tablet MDD 1 tab 08/14/17 Anemia: Yes COPD: No - Surgical History Abdominal Surgery: Yes (sky fuentes) - Immunization History Td Vaccination: Yes Immunization Up to Date: Yes - Suicide/Smoking/Psychosocial Hx Smoking Status: No Smoking History: Never smoked Years of Tobacco Use: 0 Have you smoked in the past 12 months: No Number of Cigarettes Smoked Daily: 0 Cigars Per Day: 0 Hx Alcohol Use: No Drug/Substance Use Hx: No Substance Use Type: None Review of Systems - Review of Systems Comments:: 08/14/17 17:28 GENERAL/CONSTITUTIONAL: No fever or chills. No weakness. HEAD, EYES, EARS, NOSE AND THROAT: No change in vision. No ear pain or discharge. No sore throat. CARDIOVASCULAR: No chest pain or shortness of breath RESPIRATORY: No cough, wheezing, or hemoptysis. GASTROINTESTINAL: + abdominal pain, nausea, vomiting. No diarrhea or constipation. GENITOURINARY: No dysuria, frequency, or change in urination. MUSCULOSKELETAL: No joint or muscle swelling or pain. No neck or back pain. SKIN: No rash NEUROLOGIC: No headache, vertigo, loss of consciousness, or change in strength/ sensation. ENDOCRINE: No increased thirst. No abnormal weight change HEMATOLOGIC/LYMPHATIC: No anemia, easy bleeding, or history of blood clots. ALLERGIC/IMMUNOLOGIC: No hives or skin allergy. *Physical Exam - Vital Signs Last Vital Signs Temp Pulse Resp BP Pulse Ox 98.8 F 71 20 151/84 99 08/14/17 14:56 08/14/17 14:56 08/14/17 14:56 08/14/17 14:56 08/14/17 14:56 - Physical Exam Comments: 08/14/17 17:28 GENERAL: Awake, alert, and fully oriented, in no acute distress HEAD: No signs of trauma, normocephalic, atraumatic EYES: PERRLA, EOMI, sclera anicteric, conjunctiva clear ENT: Hearing grossly normal, nares patent, oropharynx clear without exudates. Moist mucosa NECK: Normal ROM, supple, no lymphadenopathy, JVD, or masses LUNGS: No distress, speaks full sentences, clear to auscultation bilaterally HEART: Regular rate and rhythm, normal S1 and S2, no murmurs, rubs or gallops, peripheral pulses normal and equal bilaterally. ABDOMEN: Soft, RUQ ttp, normoactive bowel sounds. No guarding, no rebound. No masses EXTREMITIES : Normal inspection, Normal range of motion, no edema. No clubbing or cyanosis. SKIN: Warm, Dry, normal turgor, no rashes or lesions noted ED Treatment Course - LABORATORY CBC & Chemistry Diagram: 08/14/17 15:20 08/14/17 15:20 - ADDITIONAL ORDERS Additional order review: Laboratory Results 08/14/17 08/14/17 08/14/17 15:39 15:20 15:20 WBC 4.5 D RBC 4.42 Hgb 11.9 Hct 36.9 MCV 83.5 MCH 27.0 MCHC 32.3 RDW 13.9 Plt Count 161 MPV 11.4 H Neutrophils % 61.1 Lymphocytes % 31.0 D Monocytes % 6.5 Eosinophils % 0.9 Basophils % 0.5 Nucleated RBC % 0 Sodium 140 Potassium 4.3 Chloride 107 Carbon Dioxide 26 Anion Gap 7 L BUN 8 Creatinine 0.7 Creat Clearance w eGFR > 60 Random Glucose 109 H Calcium 8.9 Total Bilirubin 0.3 AST 22 ALT 40 Alkaline Phosphatase 95 Total Protein 7.7 Albumin 3.7 Lipase 177 Urine Color Ltyellow Urine Appearance Clear Urine pH 5.0 D Ur Specific [place] 1.017 Urine Protein Negative Urine Glucose (UA) Negative Urine Ketones Negative Urine Blood 1+ H Urine Nitrite Negative Urine Bilirubin Negative Urine Urobilinogen Negative Ur Leukocyte Esterase Negative Urine WBC (Auto) 2 Urine RBC (Auto) 4 Ur Epithelial Cells Rare Urine Mucus Rare 08/14/17 15:20 RBC 4.42 MCV 83.5 MCHC 32.3 RDW 13.9 MPV 11.4 H Neutrophils % 61.1 Lymphocytes % 31.0 D Monocytes % 6.5 Eosinophils % 0.9 Basophils % 0.5 Medical Decision Making - Medical Decision Making 08/14/17 17:32 51 yo F with h/o anemia, hepatic cysts who p/w RUQ abdominal pain and N/V. AFF, VSS, A&OX3. Patient referred to ED by Dr. Banks. R/o choleycystitis, cholelithaisis. Differential also includes dyspepsia d/t gastritis, PUD, esophagitis. ED Course: 08/14/17 17:32 CBC, CMP: Unremarkable UA: Neg RUQ U/S: No evidence of cholelithiasis, or choleycystitis. NO CBD dilatation. 08/14/17 19:05 Patient can tolerate PO intake. Tolerated medication zantac and zofran. Patient stable for d/c with return precautions. Advised to f/u with GI. 08/14/17 19:08 Zofran and Zantac sent to pharmacy. *DC/Admit/Observation/Transfer Diagnosis at time of Disposition: Abdominal discomfort - Discharge Dispostion Condition at time of disposition: Stable - Referrals Referrals: ON STAFF,NOT [Primary Care Provider] - Tray Banks MD [Staff Physician] - - Patient Instructions Printed Discharge Instructions: DI for Abdominal Pain-Adult, DI for Nausea -- Adult Additional Instructions: Please return to the emergency department with any new or worsening symptoms or concerns. Please follow up with your primary care physician within 72 hours. Please follow up with your formulator compounder within one week. Please take Zofran and Zantac as needed for abdominal pain and nausea. - Post Discharge Activity - Attestations Physician Attestion: 08/14/17 17:30 I attest to the information provided in this note.
[2017-08-14] MEDS ORDERED: ONDANSETRON *ODT* 4 MG TABLET SL ONE (18:30)
[2017-08-14] MEDS ORDERED: RANITIDINE HCL 150 MG TABLET (FP) PO ONE (18:30)
--- NOTE | 2017-08-14 18:32 | PDOC ---
Attending Attestation - HPI HPI: 08/14/17 19:03 The patient is a 51 year old female with past medical history of anemia and hepatic cysts presents to the emergency department with epigastric pain. The patient reports ongoing symptoms the past 7 years of nausea, vomiting and diarrhea. The patient reports non bilious and non bloody episodes of vomiting. The patient reports getting an endoscopy done in May and was diagnosed with gastritis and hepatic cysts. The patient states her doctor said she needs a Liver transplant. Denies any constipation. Denies any dysuria, hematuria, frequency or urgency to urinate. Denies any numbness, weakness or loss of sensations. Allergies: Morphine Social history: None reported Surgical history: Shan wilkes PCP: Dr. Sergio Bryson - Physicial Exam PE: 08/14/17 19:04 GENERAL: Awake, alert, and fully oriented, in no acute distress HEAD: No signs of trauma EYES: PERRLA, EOMI, sclera anicteric, conjunctiva clear ENT: Auricles normal inspection, hearing grossly normal, nares patent, oropharynx clear without exudates. Moist mucosa NECK: Normal ROM, supple, no lymphadenopathy, JVD, or masses LUNGS: Breath sounds equal, clear to auscultation bilaterally. No wheezes, and no crackles HEART: Regular rate and rhythm, normal S1 and S2, no murmurs, rubs or gallops ABDOMEN: (+) Very mild epigastric pain. Soft, normoactive bowel sounds. No guarding, no rebound. No masses EXTREMITIES: Normal range of motion, no edema. No clubbing or cyanosis. No cords, erythema, or tenderness NEUROLOGICAL: Cranial nerves II through XII grossly intact. Normal speech, normal gait SKIN: Warm, Dry, normal turgor, no rashes or lesions noted. - Medical Decision Making 08/14/17 19:05 Documentation prepared by Lawanda Lerma, acting as medical parasitologist for Soledad Buckley DO. <Lawanda Lerma - Last Filed: 08/14/17 19:03> - Resident Resident Name: Rinku Becker - ED Attending Attestation I have performed the following: I have examined & evaluated the patient, The case was reviewed & discussed with the resident, I agree w/resident's findings & plan, Exceptions are as noted - Medical Decision Making 08/14/17 18:31 I, Dr. Soledad Buckley, DO, attest that this document has been prepared under my direction and personally reviewed by me in its entirety. I further attest, that it accurately reflects all work, treatment, procedures and medical decision -making performed by me. 08/14/17 18:31 a/p: 51yo female with epigastric pain assoc with n/v/d -ongoing x 7 years -endoscopy in May and dx with gastritis and hepatic cysts -underwent ct imaging in the past -RUQ and epigastric pain on exam -nontoxic in appearance -will check labs, RUQ u/s -will medicate and reassess 08/14/17 19:21 labs reviewed ultrasound shows hepatic cysts will need GI and hepatology follow up answered all questions will give meds for gastritis given recent UGI findings of inflammation of the stomach per the patient pt tolerated po in the ED stable for d/c to home <Soledad Buckley - Last Filed: 08/14/17 19:22>
[2017-08-14] MEDS ORDERED: RANITIDINE HCL 150 MG TABLET (FP) ONE (18:40)
[2017-08-14] MEDS ORDERED: ONDANSETRON 8 MG TABLET (FP) PO ONE (18:41)
[2017-08-14] MEDS ORDERED: ONDANSETRON *ODT* 4 MG TABLET ONE (18:51)
== END 2017-08-14 19:34 | disposition home or self-care (01) ==
LOC: JER 14:52
DX: R10.11 Right upper quadrant pain (principal); D64.9 Anemia, unspecified
CPT/HCPCS: 36415; 76705-TC; 80053; 81003; 81015; 83690; 85025; 99282-25; Q0162

== ENCOUNTER 2018-04-17 10:44 | Emergency (ER) | payer OTHER ==
[2018-04-17 11:15] VITALS: BP 150/60; PULSE 86; TEMP 98.3; BMI 24.9
[2018-04-17] MEDS ORDERED: IBUPROFEN 600 MG TABLET (FP) PO ONE ×2 (12:46→12:51)
--- NOTE | 2018-04-17 12:59 | PDOC ---
History of Present Illness - General Chief Complaint: Sore Throat Stated Complaint: SORE THROAT Time Seen by Provider: 04/17/18 12:41 History Source: Patient Exam Limitations: No Limitations - History of Present Illness Initial Comments: Patient is a 52-year-old female who has been complaining of a sore throat 3-4 days. Patient denies fever, denies lymphadenopathy, denies recent travel or sick contacts. She describes the pain as sore and rates it at a 4 out of 10. No antipyretics/analgesics taken prior to arrival. 04/17/18 12:57 Past History - Travel Traveled outside of the country in the last 30 days: No - Past Medical History Allergies/Adverse Reactions: Allergies Allergy/AdvReac Type Severity Reaction Status Date / Time morphine Allergy Intermediate Verified 04/17/18 11:09 Home Medications: Ambulatory Orders Alprazolam 2 mg PO HS 04/17/18 Famotidine [Pepcid] 20 mg PO DAILY 04/17/18 Anemia: Yes COPD: No GI Disorders: Yes (liver problem) - Surgical History Abdominal Surgery: Yes (tummy tuck) - Immunization History Td Vaccination: Yes Immunization Up to Date: Yes - Suicide/Smoking/Psychosocial Hx Smoking Status: No Smoking History: Unknown if ever smoked Years of Tobacco Use: 0 Have you smoked in the past 12 months: No Number of Cigarettes Smoked Daily: 0 Cigars Per Day: 0 Hx Alcohol Use: No Drug/Substance Use Hx: No Substance Use Type: None Review of Systems - Review of Systems Able to Perform ROS?: Yes Constitutional: No: Fever HEENTM: Yes: Throat Pain. No: Throat Swelling, Difficulty Swallowing All Other Systems: Reviewed and Negative *Physical Exam - Vital Signs Last Vital Signs Temp Pulse Resp BP Pulse Ox 98.3 F 86 18 150/60 98 04/17/18 11:14 04/17/18 11:14 04/17/18 11:14 04/17/18 11:14 04/17/18 11:14 - Physical Exam Comments: Constitutional: VS stated, pt appears in no apparent distress; Skin: Warm and dry. Intact, no lesions or excoriations. Head: Normocephalic; atraumatic Eyes: conjunctiva pink without injection or discharge. Ears: No tenderness present. Canals without injection or discharge; TM clear, no retractions or bulging. Nose: Patent, mucosa pink. No drainage. Sinuses: No tenderness over frontal and maxillary sinuses. Throat: Oropharynx with pink and moist mucosa. Dentition good. No pharyngeal edema; erythema or exudate. Tongue normal, no fasciculations. Airway Patent. Hypoglossal area is soft. Uvula is midline. No trismus. Neck: Supple, non-tender, with full ROM, trachea midline, no anterior/posterior cervical chain lymphadenopathy, thyroid nonpalpable. No stridor or bruits. Chest: Normal AP diameter, symmetrical excursions bilaterally, no retractions or bulging of the intercostal spaces. No pain or tenderness noted on palpation. Lungs: Bilateral breath sounds clear upon auscultation. No adventitious breath sounds. Heart: Regular rate and rhythm, S1/S2 auscultated. No murmurs, rubs, or gallops. No visible pulsations, heaves, or lifts on precordium. Abdomen: Soft and non-tender. Musculoskeletal: Moves all extremities without difficulty. Neurologic: Awake, alert. Extremities: Warm to touch. 04/17/18 12:58 Moderate Sedation - Procedure Monitoring Vital Signs: Procedure Monitoring Vital Signs Temperature 98.3 F 04/17/18 11:14 Pulse Rate 86 04/17/18 11:14 Respiratory Rate 18 04/17/18 11:14 Blood Pressure 150/60 04/17/18 11:14 O2 Sat by Pulse Oximetry (%) 98 04/17/18 11:14 ED Treatment Course - Medications Given in the ED: ED Medications Discontinued Medications Generic Name Dose Route Start Last Admin Trade Name Freq PRN Reason Stop Dose Admin Ibuprofen 600 mg 04/17/18 12:46 04/17/18 12:52 Motrin - PO 04/17/18 12:47 600 mg ONCE ONE Administration Medical Decision Making - Medical Decision Making 04/17/18 12:59 Pt's RBS was negative. 04/17/18 13:30 *DC/Admit/Observation/Transfer Diagnosis at time of Disposition: Acute pharyngitis Qualifiers: Pharyngitis/tonsillitis etiology: unspecified etiology Qualified Code(s): J02.9 - Acute pharyngitis, unspecified - Discharge Dispostion Disposition: HOME Condition at time of disposition: Stable - Referrals - Patient Instructions Printed Discharge Instructions: DI for Viral Pharyngitis Additional Instructions: Take Ibuprofen 600 mg every 6 hours. F/U with your PCP. - Post Discharge Activity
== END 2018-04-17 13:44 | disposition home or self-care (01) ==
LOC: JERFT 10:44
DX: J02.9 Acute pharyngitis, unspecified (principal); Z86.2 Personal history of diseases of the blood and blood-forming organs and certain disorders involving the immune mechanism; Z87.19 Personal history of other diseases of the digestive system
CPT/HCPCS: 87070; 87880; 99281-25

== ENCOUNTER 2019-02-09 03:30 | Emergency (ER) | payer OTHER ==
[2019-02-09 04:16] VITALS: BP 106/56; PULSE 86; TEMP 98.2; BMI 25.4
[2019-02-09] MEDS ORDERED: DEXAMETHASONE SOD PHOSPHATE 4 MG/1 ML VIAL IM ONE (04:41)
[2019-02-09] MEDS ORDERED: diazePAM 5 MG TABLET PO ONE (04:41)
--- NOTE | 2019-02-09 04:43 | PDOC ---
History of Present Illness - General Chief Complaint: Chronic pain Stated Complaint: PAIN NECK SHOULDER Time Seen by Provider: 02/09/19 04:26 - History of Present Illness Initial Comments: 02/09/19 04:42 53 years old with past medical history significant for fibromyalgia presents with several day history of right shoulder and neck pain. Patient was seen earlier at an outside hospital had x-rays done of her neck and shoulder with no acute pathology being noted she was diagnosed with musculoskeletal discomfort and referred to orthopedics she presents to the ED with persistent pain. Pain is worse when she lifts her right arm she does not have full range of motion it is not alleviated by rest Past History - Past Medical History Allergies/Adverse Reactions: Allergies Allergy/AdvReac Type Severity Reaction Status Date / Time morphine Allergy Intermediate Verified 02/09/19 04:13 Home Medications: Ambulatory Orders Alprazolam 2 mg PO HS 04/17/18 Famotidine [Pepcid] 20 mg PO DAILY 04/17/18 Diazepam [Valium] 2 mg PO DAILY 3 Days #3 tablet MDD 1 02/09/19 Methylprednisolone [Medrol Dose Adam] 4 mg PO ASDIR #21 tablet 02/09/19 Anemia: Yes COPD: No GI Disorders: Yes (liver problem) - Surgical History Abdominal Surgery: Yes (tummy tuck) - Immunization History Td Vaccination: Yes Immunization Up to Date: Yes - Psycho Social/Smoking Cessation Hx Smoking Status: No Smoking History: Never smoked Years of Tobacco Use: 0 Have you smoked in the past 12 months: No Number of Cigarettes Smoked Daily: 0 Cigars Per Day: 0 Hx Alcohol Use: No Drug/Substance Use Hx: No Substance Use Type: None Review of Systems - Review of Systems Comments:: 02/09/19 04:43 ROS: A complete review of 10 out of 10 review of systems is taken and is negative apart from what is previously mentioned below and in the HPI. *Physical Exam - Vital Signs Last Vital Signs Temp Pulse Resp BP Pulse Ox 98.2 F 86 18 106/56 L 99 02/09/19 03:30 02/09/19 03:30 02/09/19 03:30 02/09/19 03:30 02/09/19 03:30 - Physical Exam Comments: 02/09/19 04:43 Insert my physical 02/09/19 08:59 Vitals: Triage Vital signs reviewed decreased range of motion to right shoulder reproducible pain with extension and flexion of the shoulder no deformity no step-off General Appearance: No acute distress, well nourished well developed, Head: Atraumatic, Cardiac: Regular rate and rhythym, no murmurs, no rubs, no gallops, Lungs: Clear to auscultation bilateral, good air movement bilaterally, Abdomen: Soft, non distended, normal bowel sounds, non tender to palpation Extremities decreased range of motion to right shoulder pain with flexion extension cannot extend past 90 degrees. Neurovascular intact distally. Skin: Warm and dry, no rashes or lesions, no rash, no petechiae Neuro: AOX3; cranial Nerves 2-12 grossly intact, strength intact to all extremities, sensation intact to all extremities, gait normal Psych: Normal mood, normal affect Medical Decision Making - Medical Decision Making 02/09/19 09:00 Patient presents with persistent pain to right shoulder status post visiting in the emergency department earlier today was prescribed 2 medications which she states "did nothing" she had x-rays of her neck and shoulder performed she has pain with range of motion to her right shoulder but denies history of trauma there is no obvious deformity bruising she is neurovascularly intact distally she does have history of fibromyalgia Decadron and Valium ordered Reevaluation patient feels somewhat better provided patient with orthopedic and neurosurgery follow-up Findings, the need for follow-up and strict return instructions discussed with patient. Discharge - Discharge Information Problems reviewed: Yes Clinical Impression/Diagnosis: Exacerbation of chronic back pain Condition: Fair Disposition: HOME - Admission No - Additional Discharge Information Prescriptions: Diazepam [Valium] 2 mg PO DAILY 3 Days #3 tablet MDD 1 Methylprednisolone [Medrol Dose Adam] 4 mg PO ASDIR #21 tablet - Follow up/Referral Referrals: Kane Guardado MD, [facility] [Staff Physician] - Bj Quintanilla MD [Staff Physician] - - Patient Discharge Instructions Additional Instructions: Follow-up with Dr. Sifuentes neurosurgery this week. Return to the emergency department for any severe worsening symptoms or for any concerns. Medrol Dosepak and Valium as prescribed for pain. - Post Discharge Activity
[2019-02-09] MEDS ORDERED: DEXAMETHASONE SOD PHOSPHATE 4 MG/1 ML VIAL ONE (05:18)
[2019-02-09] MEDS ORDERED: diazePAM 5 MG TABLET ONE (05:19)
== END 2019-02-09 07:13 | disposition home or self-care (01) ==
LOC: JER 03:30
PROC: 3E0233Z Introduction of Anti-inflammatory into Muscle, Percutaneous Approach (ICD-10-PCS; principal; 2019-02-09)
DX: M54.89 Other dorsalgia (principal); M79.7 Fibromyalgia; Z86.2 Personal history of diseases of the blood and blood-forming organs and certain disorders involving the immune mechanism; Z87.19 Personal history of other diseases of the digestive system; Z88.5 Allergy status to narcotic agent
CPT/HCPCS: 96372; 99282-25

== ENCOUNTER 2020-07-11 15:39 | Emergency (ER) | payer MEDICARE, OTHER ==
[2020-07-11 15:49] VITALS: TEMP 98.4; BMI 64.0
[2020-07-11 17:33] LABS: INR 1.07 (0.83-1.09); PROTHROMBIN TIME (PATIENT) 12.9 SEC (9.7-13.0)
[2020-07-11 17:40] LABS: BASO % 0.6 % (0-2.0); EOS % 0.5 % (0-4.5); HEMATOCRIT 39.5 % (32.4-45.2); HEMOGLOBIN 13.4 GM/dL (10.7-15.3); MCHC 33.9 g/dl (32.0-36.0); MEAN CELL VOLUME 88.4 fl (80-96); MEAN PLT VOLUME 11.9 fl (7.5-11.1); MONO % 4.9 % (3.8-10.2); PLATELET COUNT 130 K/MM3 (134-434); RBC 4.47 M/mm3 (3.60-5.2); RDW 13.9 % (11.6-15.6); WHITE BLOOD COUNT 5.4 K/mm3 (4.0-10.0)
[2020-07-11 17:53] LABS: CHLORIDE 111 mmol/L (98-107); SODIUM 142 mmol/L (136-145)
[2020-07-11 17:56] LABS: CALCIUM 8.8 mg/dL (8.5-10.1)
[2020-07-11 17:57] LABS: ALBUMIN 3.7 g/dl (3.4-5.0); ANION GAP 6 MMOL/L (8-16); BLOOD UREA NITROGEN 9.1 mg/dL (7-18); CO2 26 mmol/L (21-32); GLUCOSE,RANDOM 100 mg/dL (74-106); MAGNESIUM 2.1 mg/dL (1.8-2.4)
[2020-07-11 18:00] LABS: CREATININE 0.7 mg/dL (0.55-1.3); PHOSPHOROUS 2.6 mg/dL (2.5-4.9); SGOT/AST 18 U/L (15-37); SGPT/ALT 34 U/L (13-61)
[2020-07-11 18:01] LABS: TOT PROT 7.2 g/dl (6.4-8.2)
[2020-07-11 18:02] LABS: BILIRUBIN,TOTAL 0.4 mg/dL (0.2-1)
[2020-07-11 18:03] LABS: ALK PHOS 123 U/L (45-117)
[2020-07-11 19:01] VITALS: BP 133/83; PULSE 95
== END 2020-07-11 18:40 | disposition home or self-care (01) ==
LOC: JER 15:39
DX: K62.5 Hemorrhage of anus and rectum (principal); R53.1 Weakness
CPT/HCPCS: 36415; 71045-TC-FY; 80053; 82272; 82550; 82746; 83735; 84100; 84484; 85025; 85610; 86850; 86900; 86901; 93005; 93010; 99285-25

== ENCOUNTER 2020-12-05 19:12 | Emergency (ER) | payer BC, OTHER ==
[2020-12-05 19:39] VITALS: BP 111/70; PULSE 81; TEMP 98.1; BMI 28.3
[2020-12-05] MEDS ORDERED: traMADol HCL 50 MG TABLET PO ONE (22:40)
[2020-12-05] MEDS ORDERED: traMADol HCL 50 MG TABLET ONE (22:44)
== END 2020-12-05 23:13 | disposition home or self-care (01) ==
LOC: JERFT 19:12
DX: S63.501A Unspecified sprain of right wrist, initial encounter (principal); X50.9XXA Other and unspecified overexertion or strenuous movements or postures, initial encounter
CPT/HCPCS: 73110-TC-RT-FY; 99283-25

== ENCOUNTER 2021-04-17 04:25 | Day surgery (SDC) | payer BC, OTHER ==
[2021-04-14 14:24] VITALS: BMI 24.9
[2021-04-17] MEDS ORDERED: MIDAZOLAM HCL 2 MG/2 ML SINGLE DOSE VIAL ONE (15:05)
[2021-04-17] MEDS ORDERED: PROPOFOL 20 ML ONE ×2 (15:17→15:31)
[2021-04-17] MEDS ORDERED: KETOROLAC TROMETHAMINE 15 MG/ML VIAL IVPUSH ONE (16:53)
[2021-04-17] MEDS ORDERED: KETOROLAC TROMETHAMINE 30 MG/1 ML VIAL ONE (17:01)
[2021-04-17] MEDS ORDERED: KETOROLAC TROMETHAMINE 30 MG/1 ML VIAL IVPUSH ONE (17:09)
[2021-04-17 18:39] VITALS: BP 126/65; PULSE 85; TEMP 97.9
== END 2021-04-17 18:40 | disposition home or self-care (01) ==
LOC: JASU-SURG 04:25
PROVIDERS: ATTEND Urology
PROC: 0TF4XZZ Fragmentation in Left Kidney Pelvis, External Approach (ICD-10-PCS; principal; 2021-04-17 13:00)
DX: N20.0 Calculus of kidney (principal)

== ENCOUNTER 2021-07-28 15:08 | Observation (INO) | payer OTHER ==
[2021-07-28] MEDS ORDERED: ACETAMINOPHEN 1000 MG/100 ML BAG IVPB ONE (16:01)
[2021-07-28 16:33] LABS: BASO % 1.1 % (0-2.0); EOS % 0.6 % (0-4.5); HEMATOCRIT 37.6 % (32.4-45.2); HEMOGLOBIN 12.4 GM/dL (10.7-15.3); LYMPH % 35.8 % (8-40); MEAN CELL VOLUME 88.1 fl (80-96); MEAN PLT VOLUME 10.9 fl (7.5-11.1); MONO % 6.3 % (3.8-10.2); NEUT % 56.2 % (42.8-82.8); PLATELET COUNT 139 10^3/uL (134-434); RBC 4.27 M/mm3 (3.60-5.2); RDW 12.9 % (11.6-15.6); WHITE BLOOD COUNT 4.8 K/mm3 (4.0-10.0)
[2021-07-28 16:42] LABS: PROTHROMBIN TIME (PATIENT) 11.5 SEC (9.7-13.0)
[2021-07-28 16:45] LABS: ACTIVATED PTT 32.4 SECONDS (25.2-36.5)
[2021-07-28 16:55] LABS: ALBUMIN 3.9 g/dl (3.4-5.0); CALCIUM 9.1 mg/dL (8.5-10.1)
[2021-07-28 16:59] LABS: CREATININE 0.5 mg/dL (0.55-1.3)
[2021-07-28 17:00] LABS: TOT PROT 7.2 g/dl (6.4-8.2)
[2021-07-28 17:06] LABS: BILIRUBIN,TOTAL 0.4 mg/dL (0.2-1)
[2021-07-29] MEDS ORDERED: ALPRAZolam 1 MG TABLET ONE (00:31)
[2021-07-29] MEDS: ALPRAZolam 1 MG TABLET PO SCH ×2 (00:35→10:47)
[2021-07-29 02:39] VITALS: BMI 30.2
[2021-07-29] MEDS ORDERED: ALPRAZolam 1 MG TABLET PO ONE (04:14)
[2021-07-29 07:19] LABS: BASO % 0.5 % (0-2.0); EOS % 1.2 % (0-4.5); HEMATOCRIT 36.2 % (32.4-45.2); HEMOGLOBIN 12.1 GM/dL (10.7-15.3); MCH 29.1 pg (25.7-33.7); MCHC 33.5 g/dl (32.0-36.0); MEAN CELL VOLUME 86.8 fl (80-96); MEAN PLT VOLUME 11.6 fl (7.5-11.1); MONO % 6.7 % (3.8-10.2); NEUT % 53.6 % (42.8-82.8); PLATELET COUNT 130 10^3/uL (134-434); RBC 4.17 M/mm3 (3.60-5.2); WHITE BLOOD COUNT 4.9 K/mm3 (4.0-10.0)
[2021-07-29 07:39] LABS: BILIRUBIN,TOTAL 0.8 mg/dL (0.2-1)
[2021-07-29 07:40] LABS: TOT PROT 6.6 g/dl (6.4-8.2)
[2021-07-29 07:41] LABS: ALBUMIN 3.5 g/dl (3.4-5.0); BLOOD UREA NITROGEN 12.9 mg/dL (7-18)
[2021-07-29 07:43] LABS: CALCIUM 8.5 mg/dL (8.5-10.1)
[2021-07-29 07:44] LABS: CREATININE 0.7 mg/dL (0.55-1.3); MAGNESIUM 2.2 mg/dL (1.8-2.4)
[2021-07-29] MEDS: ENOXAPARIN NA (PORCINE) 40 MG/0.4 ML DISP.SYRIN SQ SCH (11:04)
[2021-07-29] MEDS: CYCLOBENZAPRINE HCL 5 MG TABLET PO PRN (15:52)
[2021-07-29] MEDS ORDERED: traZODone HCL 50 MG TABLET (FP) PO ONE (21:58)
[2021-07-30 06:56] LABS: BASO % 0.3 % (0-2.0); HEMATOCRIT 36.1 % (32.4-45.2); HEMOGLOBIN 12.1 GM/dL (10.7-15.3); LYMPH % 40.7 % (8-40); MCH 29.2 pg (25.7-33.7); MCHC 33.5 g/dl (32.0-36.0); MEAN CELL VOLUME 87.2 fl (80-96); MEAN PLT VOLUME 11.3 fl (7.5-11.1); MONO % 7.2 % (3.8-10.2); NEUT % 50.8 % (42.8-82.8); PLATELET COUNT 122 10^3/uL (134-434); RBC 4.14 M/mm3 (3.60-5.2); RDW 13.1 % (11.6-15.6); WHITE BLOOD COUNT 4.7 K/mm3 (4.0-10.0)
[2021-07-30 07:17] LABS: CHLORIDE 112 mmol/L (98-107); SODIUM 141 mmol/L (136-145)
[2021-07-30 07:34] LABS: CALCIUM 8.7 mg/dL (8.5-10.1)
[2021-07-30 07:35] LABS: ALBUMIN 3.4 g/dl (3.4-5.0); ANION GAP 6 MMOL/L (8-16); BLOOD UREA NITROGEN 14.2 mg/dL (7-18); CO2 24 mmol/L (21-32); GLUCOSE,RANDOM 129 mg/dL (74-106)
[2021-07-30 07:38] LABS: SGOT/AST 12 U/L (15-37); SGPT/ALT 31 U/L (13-61)
[2021-07-30 07:39] LABS: TOT PROT 6.6 g/dl (6.4-8.2)
[2021-07-30 07:40] LABS: BILIRUBIN,TOTAL 0.4 mg/dL (0.2-1)
[2021-07-30 07:41] LABS: ALK PHOS 113 U/L (45-117); CREATININE 0.6 mg/dL (0.55-1.3)
[2021-07-30 09:29] LABS: ERYTHROCYTE SEDIMENTATION RATE 11 mm/hr (0-30)
[2021-07-30] MEDS: ENOXAPARIN NA (PORCINE) 40 MG/0.4 ML DISP.SYRIN SQ SCH (09:37)
[2021-07-30] MEDS: CYCLOBENZAPRINE HCL 5 MG TABLET PO PRN (09:37)
[2021-07-30] MEDS: GABAPENTIN 400 MG CAPSULE PO SCH ×4 (09:41→21:36)
[2021-07-30] MEDS: ALPRAZolam 1 MG TABLET PO SCH (09:41)
[2021-07-30] MEDS ORDERED: MECLIZINE HCL 12.5 MG TABLET PO PRN (14:37)
[2021-07-30] MEDS ORDERED: CYCLOBENZAPRINE HCL 5 MG TABLET PO PRN (15:56)
[2021-07-31] MEDS: GABAPENTIN 400 MG CAPSULE PO SCH ×2 (06:10→13:56)
[2021-07-31 09:06] LABS: BASO % 0.7 % (0-2.0); EOS % 1.4 % (0-4.5); HEMATOCRIT 37.4 % (32.4-45.2); HEMOGLOBIN 13.1 GM/dL (10.7-15.3); LYMPH % 42.4 % (8-40); MCH 30.4 pg (25.7-33.7); MCHC 35.1 g/dl (32.0-36.0); MEAN CELL VOLUME 86.7 fl (80-96); MEAN PLT VOLUME 10.7 fl (7.5-11.1); MONO % 6.8 % (3.8-10.2); NEUT % 48.7 % (42.8-82.8); PLATELET COUNT 131 10^3/uL (134-434); RBC 4.31 M/mm3 (3.60-5.2); RDW 13.1 % (11.6-15.6); WHITE BLOOD COUNT 4.7 K/mm3 (4.0-10.0)
[2021-07-31 09:36] LABS: ALBUMIN 3.5 g/dl (3.4-5.0)
[2021-07-31 09:38] LABS: CREATININE 0.5 mg/dL (0.55-1.3)
[2021-07-31 09:39] LABS: BILIRUBIN,TOTAL 0.5 mg/dL (0.2-1)
[2021-07-31 09:40] LABS: PHOSPHOROUS 3.8 mg/dL (2.5-4.9)
[2021-07-31 09:41] LABS: TOT PROT 6.9 g/dl (6.4-8.2)
[2021-07-31 09:44] LABS: CALCIUM 8.5 mg/dL (8.5-10.1)
[2021-07-31 09:45] LABS: BLOOD UREA NITROGEN 11.7 mg/dL (7-18); MAGNESIUM 2.2 mg/dL (1.8-2.4)
[2021-07-31] MEDS ORDERED: ENOXAPARIN NA (PORCINE) 40 MG/0.4 ML DISP.SYRIN SQ SCH (10:00)
[2021-07-31] MEDS ORDERED: ALPRAZolam 1 MG TABLET PO SCH (10:00)
[2021-07-31 10:09] VITALS: BP 114/65; PULSE 81; TEMP 98
== END 2021-07-31 14:24 | disposition home health service (06) ==
LOC: JER 15:08 → JERBED 17:47 → J2W 07-29 03:36 → J6S 07-30 15:42
PROVIDERS: ADMIT Internal Medicine; ATTEND Internal Medicine
PROC: 3E023GC Introduction of Other Therapeutic Substance into Muscle, Percutaneous Approach (ICD-10-PCS; principal; 2021-07-28)
DX: G43.909 Migraine, unspecified, not intractable, without status migrainosus (principal); G89.29 Other chronic pain; E66.8 Other obesity; Z68.30 Body mass index [BMI] 30.0-30.9, adult; M79.7 Fibromyalgia; F41.0 Panic disorder [episodic paroxysmal anxiety]; D64.9 Anemia, unspecified; K76.89 Other specified diseases of liver; Z90.79 Acquired absence of other genital organ(s); R42 Dizziness and giddiness; R19.7 Diarrhea, unspecified; Z29.8 Encounter for other specified prophylactic measures; Z91.041 Radiographic dye allergy status
CPT/HCPCS: 36415; 70450-TC; 71045-TC-FY; 74176-TC; 80053; 80061; 83735; 84100; 84443; 84484; 85025; 85610; 85651; 85730; 86140; 86682; 93005; 93010; 93306-TC; 96372; 97116-GP; 97162-GP; 99285-25; C9803-CS; G0378; U0003; U0005

== ENCOUNTER 2021-09-07 17:32 | Emergency (ER) | payer OTHER ==
[2021-09-07 17:54] VITALS: BP 122/82; PULSE 77; TEMP 98.2; BMI 29.5
[2021-09-07] MEDS ORDERED: KETOROLAC TROMETHAMINE 30 MG/1 ML VIAL IM ONE (20:25)
[2021-09-07] MEDS ORDERED: LIDOCAINE 5% TOPICAL PATCH TP ONE (20:25)
[2021-09-07] MEDS ORDERED: CYCLOBENZAPRINE HCL 10 MG TABLET (FP) PO ONE (20:26)
[2021-09-07] MEDS ORDERED: KETOROLAC TROMETHAMINE 30 MG/1 ML VIAL ONE (20:48)
[2021-09-07] MEDS ORDERED: LIDOCAINE 5% TOPICAL PATCH ONE (20:48)
[2021-09-07] MEDS ORDERED: CYCLOBENZAPRINE HCL 10 MG TABLET (FP) ONE ×2 (22:07)
== END 2021-09-07 23:16 | disposition home or self-care (01) ==
LOC: JERFT 17:32 → JER 17:32
PROC: 3E023GC Introduction of Other Therapeutic Substance into Muscle, Percutaneous Approach (ICD-10-PCS; principal; 2021-09-07)
DX: M54.2 Cervicalgia (principal)
CPT/HCPCS: 72125-TC; 99284-25

== ENCOUNTER 2022-01-08 10:10 | Emergency (ER) | payer OTHER ==
[2022-01-08 11:31] VITALS: BP 119/76; PULSE 84; RESP 16; TEMP 98.1; BMI 28.8
[2022-01-08] MEDS ORDERED: MECLIZINE HCL 25 MG TABLET (FP) PO ONE (11:46)
[2022-01-08] MEDS ORDERED: METOCLOPRAMIDE HCL 10 MG TABLET (FP) PO ONE ×2 (11:46→11:49)
[2022-01-08] MEDS ORDERED: IBUPROFEN 600 MG TABLET (FP) PO ONE ×2 (11:46→11:49)
[2022-01-08] MEDS ORDERED: MECLIZINE HCL 25 MG TABLET (FP) ONE (11:49)
== END 2022-01-08 12:30 | disposition home or self-care (01) ==
LOC: JERFT 10:10
DX: M79.7 Fibromyalgia (principal); R42 Dizziness and giddiness; R51.9 Headache, unspecified
CPT/HCPCS: 70450-TC; 99284-25